=== PATIENT | male | born 1995 | race African-American/Black ===

== ENCOUNTER 2017-11-21 17:26 | Emergency (ER) | payer SELFPAY ==
[2017-11-21 17:27] VITALS: BP 123/69; PULSE 71; RESP 18; TEMP 36.6; O2SAT 98; BMI 22.7
[2017-11-21 19:14] VITALS: PULSE 56; RESP 13; O2SAT 99
--- NOTE | 2017-11-21 19:15 | ED.DCSUM_ITS ---
- ER Visit Summary Date of Service: 11/21/17 Chief Complaint: Chest pain History of Present Illness: The patient is a 22 M with no primary care physician. He reports that he has chest pain that began 3 weeks ago. Is been a continuous pain for the past 3 days. He reports is an aching pain that is 8 out of 10 at worst and 5 out of 10 currently. It is worsened by slumping his shoulders forward. Is relieved by nothing. He does report that he has been mildly short of breath with it. No nausea, vomiting, or diaphoresis. No personal or family history of DVT. No recent travel. No ankle swelling or calf pain. Physical Examination: Vitals: Stable. Afebrile. General: Well-nourished and well-developed. Head: Normocephalic atraumatic. Neck: Supple, no lymphadenopathy. No JVD. Nontender. Cardiovascular: Regular rate and rhythm. No murmurs. Respiratory: No respiratory distress. Clear to auscultation bilaterally. Abdominal: Soft, nontender, nondistended, normal bowel sounds. No guarding, rebound, or peritoneal signs. Back: Nontender. Extremities: Nontender, no edema. Skin: Normal color, no rash. Neurologic: Alert and oriented ?3. Cranial nerves II through XII are intact. Normal strength and sensation. Psych: Normal affect. Test Results: EKG is sinus at 61 with benign early re-pole and LVH. There is no old EKG for comparison. CBC is marked for eosinophils of 6. Chem-7 is more for creatinine 1.32. There is no old creatinine for comparison. Chest x-ray is normal. Emergency Department Course and Treatment: Patient was treated the dose of Toradol IV and is resting comfortably. Treatment Plan: Patient will be discharged naproxen. Instructed for Dr. Wong in 3-5 days if not improving. Return to the emergency department for any worsening symptoms. Disposition: To home in improved and stable condition. Impression: 1. Atypical chest pain. 2. RICHI score of 0. 3. Renal insufficiency. This note was generated with [employer] software. It may contain incorrect words, spelling, and punctuation that were not noted in review of the chart prior to signing ED Disposition - Plan for ED Patient: Disposition: Home or Assisted Living Chief Complaint: Chest Pain Instructions: ED Chest Pain Atypical Unkn Cause Prescriptions: Naproxen [Naprosyn] 500 mg PO BID #14 tablet Referrals: Ivon Wong DO [STAFF PHYSICIAN] - 1 Week if not improving
--- NOTE | 2017-11-21 19:17 | ED.RN ---
NO OLD EKGS IN MUSE
[2017-11-21] MEDS: Ketorolac 30 MG/ML Syringe IV (19:21)
[2017-11-21 19:39] LABS: Absolute Lymphocyte Count 2.43 X10^3/ul (0.83-4.51); Absolute Neutrophil Count 3.8 X10^3/uL (2.0-7.7); Basophil# 0.03 X10^3/uL; Basophil% 0.4 % (0-1); Eosinophil# 0.43 X10^3/uL; Hematocrit 46.5 % (40-54); Hemoglobin 15.1 g/dl (13.0-16.5); Lymphocyte # 2.43 X10^3/ul (4.0); Lymphocyte % 33.7 % (19-41); Mean Corp Hgb Conc 32.5 g/gl (32-36); Mean Corpuscular Hgb 28.9 pg (27.0-32.0); Mean Corpuscular Volume 88.9 fL (80-94); Mean Platelet Vol. 10.1 fl (6.2-12.0); Monocyte# 0.52 X10^3/uL; Monocyte% 7.2 % (0-10); Neutrophil % 52.7 % (47-70); Platelet Count 189 K/mm3 (150-450); RBC Distribution Width CV 13.4 % (11.6-14.6); RBC Distribution Width SD 43.4 fl (35.1-43.9); Red Blood Count 5.23 M/mm3 (4.6-6.2); White Blood Count 7.2 K/mm3 (4.4-11.0)
[2017-11-21 19:40] LABS: POSITIVE COUNT NO; POSITIVE DIFFERENTIAL NO; POSITIVE MORPHOLOGY NO
[2017-11-21 19:43] LABS: Anion Gap 9 (5-15); BUN 13 mg/dL (7-18); BUN/Creat Ratio 9.8 RATIO (10-20); Calcium,Total 8.5 mg/dL (8.5-10.1); Chloride 106 mmol/L (98-107); Creatinine, Serum 1.32 mg/dL (0.70-1.30); EST Glomerular Filtration Rate 73 mL/min (>60); Est Glom Filt Rate - Afr Amer 89 mL/min (>60); Estimated Creatinine Clearance 90.91 ml/min; Glucose 80 mg/dL (74-106); Potassium 3.6 mmol/L (3.5-5.1); Sodium Level 141 mmol/L (136-145)
[2017-11-21 20:34] VITALS: PULSE 67; RESP 17; O2SAT 99
== END 2017-11-21 20:39 | disposition home or self-care (01) ==
LOC: ED 19:34
PROVIDERS: Emergency Provider Emergency Medicine
DX: R07.89 Other chest pain (principal); N28.9 Disorder of kidney and ureter, unspecified; Z72.0 Tobacco use
CPT/HCPCS: 71045; 80048; 85025; 93005; 96374; 99284; A4216

== ENCOUNTER 2019-07-12 13:17 | Emergency (ER) | payer SELFPAY ==
[2019-07-12 13:18] VITALS: BP 156/87; PULSE 96; RESP 20; TEMP 36.2; O2SAT 96; BMI 22.4
--- NOTE | 2019-07-12 13:51 | ED.VIS.PSYCH ---
History of Present Illness Chief Complaint: Suicidal Detail of Chief Complaint: depressed, suicidal thoughts Informant: Patient Onset: Weeks Context: Gradual Onset Conflict: Family, Work, Financial Timing: Continuous Current Severity: Moderate Maximum Severity: Moderate Worsened by: Situational factors Associated Symptoms: Depressed, Change in sleeping, Decreased Interest, Suicidal Thoughts. Negative for: Change in Eating, Hopelessness, Paranoia, Visual Hallucinations, Auditory Hallucinations Specific plan (suicidal thought): overdose and/or use his handgun Narrative: Patient having suicidal thoughts as a result of being depressed about multiple life stressors including being denied access to be involved with his 5-month-old daughter. States he was finding himself in love with the mother of the young girl, however no longer wants to be with her, but she is refusing to allow him to see his daughter. He states this has pushed him over the edge, that everyone is telling him he is crazy and needs to be on medications, counseling, presumably for his depression which he admits he is depressed. He has a handgun, and admits that he was posting on social media that he would overdose on Xanax and fentanyl and if that did not work, he would shoot himself with his handgun. He states that he has owned a handgun for years and has never used it and hopes that he never will have to. He has never seen a counselor before. He does not have any symptoms of psychosis, just depression but he tells me that his depression would be mostly cured and suicidality would be a nonissue if he had access to his daughter so that he could be involved with her life, regardless of the mother. He states that young girl is what is keeping him from following through with his threats. Prior similar symptoms: Yes Recent Illness/Hospitalization: No Past Medical History - Allergies and Home Meds Allergies/Adverse Reactions: Allergies No Known Allergies Allergy (Verified 07/12/19 14:22) Primary Care Physician: Care Physician,No Primary [Primary Care Provider] - Past Medical History: None Smoking Status: Current every day smoker Drugs: None Review of Systems General: Denies: Chills, Fever, Sweats Eyes: Denies: Visual changes - bilaterally, Diplopia ENT: Denies: Bilateral ear pain, Rhinorrhea, Sore throat Cardiovascular: Denies: Chest pain, Palpitations Respiratory: Denies: Dyspnea, Cough, Dyspnea on exertion Gastrointestinal: Denies: Abdominal pain, Nausea, Vomiting, Diarrhea, Melena, Hematochezia Genitourinary: Denies: Dysuria, Hematuria, Frequency Musculoskeletal: Denies: Back pain, Extremity Pain Skin: Denies: Rash, Wounds Neurological: Denies: Headache, Weakness, Numbness Psych: Reports: Depression, Suicidal thoughts. Denies: Suicidal ideations Physical Exam Vital Signs/Narrative: Vital Signs Temp Pulse Resp BP Pulse Ox 07/12/19 13:18 97.1 F L 96 20 H 156/87 H 96 General: Well nourished, Well developed Head: Normocephalic, Atraumatic Eyes: Perrl, EOMI ENT: Moist mucous membranes, No rhinorrhea Neck: Supple, Nontender Cardiovascular: Regular rate, Regular rhythm, No murmurs Respiratory: No distress, CTA bilaterally, Chest nontender Extremities: Nontender, No Edema Skin: Normal color, No rash, No Trauma Neurological: Alert, Oriented x3, Cranial nerves II-XII grossly intact, Normal Strength, Normal Sensation, Normal Gait Psych: Normal Speech Pattern, Logical sequential goal directed thoughts, No suicidal or homicidal ideation, Normal Stable Appropriate Affect, Good Insight, Normal Appearance, Suicidal thoughts. Negative for: Hallucinations, Delusions, Paranoid Ideation Diagnostic/Tx/Re-eval This patient has been having thoughts of self-harm, and even gestured. However he regrets that, really just wants to be involved with his 5-month-old daughter, despite his ex-girlfriend disallowing him to see her. He plans on dealing with this in court at some point, however he does understand that he has other stressors going on contributing to his depression, and agrees that seeing the counselor would be in his and everyone else best interest under the current circumstances. He contracts for safety initially. However then, we got notification from the local house detective who contacted his colleague with the police department here at the emergency department, that the patient while present in our emergency department, was using his telephone to text the ex-girlfriend basically that he was extremely upset with her, that her behavior and actions were going to make me want to commit suicide more now and he even threatened specifics, with regards to overdosing on specific medications, using his firearm to shoot himself, etc. However on further investigation, he has no access to his firearm which is at his grandmother's house, he is not staying there and is staying with some friends/roommates right now, his roommates agreed to accept him back and will help to watch him, there is no access to any drugs or medications or firearms in the house at which they are all staying, and when he goes to and from work, he is always with someone who is giving him a ride that works with him, so he will not be out of his roommates sight alone. Social work discussed with crisis, work pattern chain maker supervisor, and his friend/roommates and everyone is on board with this patient going home and following up with counseling, crisis to call him tomorrow. The patient wants to go home and again is very cooperative and forthcoming about everything, saying basically this is more of a social situation where if he had access to his daughter this really would not be an issue, except for the fact that he keeps issuing threats to his ex, and I am in agreement with crisis that this is more attention seeking than actual suicidal ideation which the patient denies. ED Disposition - Plan for ED Patient: Disposition: Home or Assisted Living Diagnosis: Depression, Suicidal thoughts Instructions: ED Depression, CONTRACT, No Harm Referrals: Counseling,Center [GROUP OF PHYSICIANS] - As soon as possible (they will call you tomorrow)
--- NOTE | 2019-07-12 14:15 | CM.ED ---
Social Work Consult: Suicidal Informant: Dr. Sears Chief Complaint: I have been depressed. Patient cheri slipped to ED by Thang ALVAREZ due to patient ex-girlfriend, Jeanie calling the police about a concerning txt message patient sent Jeanie. Patient stated plan to shoot self or take pills to end patient life per Jeanie's report to police. Marital/Social History: Single. In dating relationship with Jeanie for 1 year and 8 months and recently broke up. Patient had an 8 month old daughter, Devante Argueta that patient has not seen for 3-4 months. Living Situation: Lives with friends. Support/Resources: Friends and family. History: None Education/Employment History: Works full-time at [employer] from 6:45a-2:45p. Reports no concerns with comprehension or understanding. Patient currently in [employer] school. Mental Health Treatment/History: Denies any mental health history. Stating to currently be depressed. Patient denies any active counseling or medication to manage mental health. Patient denies any history of inpatient psychiatric placement. Triggers/Stressors: Negative thoughts. Not being able to see Devante. Coping Skills: Being with friends, listening to music. Abuse Issues: Did not assess Substance Abuse Hx: Denies any current substance abuse. Patient stating to have history of substance abuse. Risk to Self/Others: Patient denies any active suicidal thoughts with plan. Patient admitting to having suicidal thoughts lately and to have taken pills three days ago with intention of hurting self, but regrets this decision and states I want to live. Patient denies any homicidal thoughts/plans. Patient stating to have had a gun to head at the age of 19 in an attempt to end life and that the ammo did not ground right and this is what saved patient life. Patient denies current access to firearms or medications. Patient stating to be with friends all the time. Patient stating that friends are a protective factor. Patient stating to have three goals in life: 1. Graduate, 2. Be the best dad, 3. Work on improving self. Mental Status Exam: A&Ox3 Appearance/General Behavior: Clean. Directable. Calm. Mood/Affect: Grandiose. Slightly elevated. Communication Pattern: Responds to questions. Thought Process: Appropriate. Judgement: Fair Assessment: Met with patient in room. Introduced self as well as group social worker role. Patient agreeable to speaking with this group social worker. Patient stating I just want to go home. Patient stating to want to live and does not want to kill self. Patient speaking majority of assessment about dynamics between patient ex-girlfriend, Jeanie and 8 month old daughter, Devante. Patient stating to want to live for daughter and to only want to see daughter. Patient stating to have no family. Patient defining family as Devante and Jeanie and stating to want to be with them. This group social worker and patient having discussion about things that patient is able to control and things that patient is not able to control. Patient forward thinking. Active support and listening provided. Patient stating to live with friends that keep me safe. Patient stating they know when I am depressed. Patient stating that a step-father of one of patient friends also lives in home. Patient stating the ages of friends as 19 and 20. When this group social worker went to leave patient room to collaborate with Thang De Oliveira updating this group social worker that Jeanie called into the police again with further concerns of patient harming self through txt messages that patient is sending Jeanie at this time. Thang ALVAREZ working on obtaining txt messages for this group social worker at this time. Will continue to follow. Emmanuelle MCGILL, CECIL
[2019-07-12 15:23] VITALS: RESP 18
--- NOTE | 2019-07-12 15:36 | ED.RN ---
CYNTHIA PLACED IN THE ROOM AFTER RECEIVING TEXT MESSAGES
--- NOTE | 2019-07-12 15:55 | CM.ED ---
Addendum entered by Jess Orozco 07/12/19 19:00: Crisis to call patient at 1500 on 07/13/2019, patient provided with reminder. Original Note: Social Work Thang ALVAREZ obtaining txt message history between Jeanie and patient on this day. Message time stamped as 2:35pm on this day. Patient stating to Jeanie You'll never learn told you police won't stop shit, THE ONLY HELP WAS & STILL IS BEING WITH MY FAMILY! You just made me wanna do this so much more you don't even know!. Showing txt messages to Dr. Sears. Dr. Sears wondering about motivation behind txt messages and questioning attention seeking behavior as patient is denying suicidal thoughts or plans. Dr. Sears also requesting for crisis to be consulted. Telephone call to Oseas, Kennedi. Collaborating on case and patient current risk/protective factors. Kennedi stating that patient does not appear to currently meed criteria for [facility] as this would be where patient would be placed if needed due to not having insurance. This social work instructor reading over txt messages and Kennedi also under the impression that patient is attempting to seek attention from ex-girlfriend. Met with patient in room. This social work instructor addressing txt messages with patient and why medical team is concerned. Patient stating I just want to go home. I am not going to kill myself. Patient mother calling to speak with this social work instructor. Patient is open to this social work instructor speaking with patient mother, Roly ([phone]). Phone conversation with Shivareginaldosalbador. Roly stating that patient uses to be on medications at the age of 19 and they helped. Roly stating to believe that patient txt messages are attention seeking to try and obtain time with patient daughter. Roly stating to believe that patient is not suicidal. Patient is agreeable to this social work instructor speaking with patient friend/roommate, Gus. Met with Gus outside ED. Gus stating that patient has been depresses since patient has not been able to see daughter. Gus stating to check in with patient often and that he wants to live. Gus stating that there are no medications or firearms in the home. Gus counseled on lethal means. Collaborating further with Dr. Sears, plan is for safety plan to home with crisis follow-up appointment tomorrow. Met with patient again in room. Patient demonstrating forward thinking when speaking about going to work tomorrow and needed to get out of here. Patient calm and speaking with this social work instructor. Patient open to safety plan and crisis to follow up with patient via phone call tomorrow. This social work instructor broached topic of counseling for patient. Patient is not interested in counseling services. This social work instructor educating patient further on the benefits of counseling and how this could help patient work through current life stressors, patient voicing understanding but providing no commitment or plan to follow up with counseling. Patient educated that if crisis is unable to get in contact with patient tomorrow that a wellness check will be completed, patient stating oh, glad you told me, I might not have answered. This social work instructor expressing importance of following up with mental health services for patient safety. Patient stating plan and intent to stay with friends as I don't like to be alone. Patient stating my friends keep me safe. This social work instructor counseled patient on lethal means as well as provided patient with crisis hotline and local counseling resources. Safety plan completed and copy provided to patient and placed on patient chart. Risk Factors: History of suicide attempt, depressed mood, questionable txt with unclear motive. 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 Through collaborating with Dr. Sears, patient mother, patient friend, Gus, crisis and this social work instructor all agreeable that patient is safe to discharge to home with crisis follow up tomorrow. PLAN: Discharge to home with safety plan and crisis to follow up tomorrow. Emmanuelle MCGILL, CECIL
--- NOTE | 2019-07-12 16:39 | ED.RN ---
CASE MANAGEMENT SAW PATIENT AND INITIATED SAFETY PLAN. PT VERBALIZES UNDERSTANDING. PT, GRAIN FARMER AND MD ALL IN AGREEMENT WITH PT GOING HOME.
== END 2019-07-12 16:40 | disposition home or self-care (01) ==
PROVIDERS: Emergency Provider Emergency Medicine
DX: F32.9 Major depressive disorder, single episode, unspecified (principal); R45.851 Suicidal ideations; F17.200 Nicotine dependence, unspecified, uncomplicated
CPT/HCPCS: 99282

== ENCOUNTER 2019-12-23 19:49 | Emergency (ER) | payer SELFPAY ==
[2019-12-23 19:50] VITALS: BP 129/84; PULSE 115; RESP 17; TEMP 37.4; O2SAT 98; BMI 21.5
[2019-12-23 20:03] VITALS: BP 129/84; PULSE 115; RESP 17; O2SAT 98
[2019-12-23] MEDS: Ziprasidone IM 20 MG/ML VIAL IM (20:20)
--- NOTE | 2019-12-23 20:35 | ED.DCSUM_ITS ---
- ER Visit Summary Date of Service: 12/23/19 Chief Complaint: Suicidal ideation History of Present Illness: The patient is a 24 M with no primary care physician or psychiatrist. Please were called the house as the patient was in an argument with family. He reported them multiple times that he was suicidal and asked them to kill him. Upon arrival to the emergency department patient does admit to suicidal ideation. He reports I am worthless, I cannot go on, I will kill myself. He reports that we cannot keep him from killing himself. However, he denies a specific plan at this time. Review of systems: General: No fever, chills, cold sweats. Cardiovascular: No chest pain, palpitations. Respiratory: No cough, shortness of breath, dyspnea on exertion. Gastrointestinal: No abdominal pain, nausea, vomiting, diarrhea, melena, or hematochezia. Genitourinary: No dysuria, frequency, hematuria. Skin: No rash. Neuro: No headache, numbness, weakness. Physical Examination: Vitals: Stable. Afebrile. General: Well-nourished and well-developed. Head: Normocephalic atraumatic. Neck: Supple, no lymphadenopathy. No JVD. Nontender. Cardiovascular: Tachycardic regular rhythm. No murmurs. Respiratory: No respiratory distress. Clear to auscultation bilaterally. Abdominal: Soft, nontender, nondistended, normal bowel sounds. No guarding, rebound, or peritoneal signs. Back: Nontender. Extremities: Nontender, no edema. Skin: Normal color, no rash. Neurologic: Alert and oriented ?3. Cranial nerves II through XII are intact. Normal strength and sensation. Mental status exam: Patient appears their stated age. Good posture and grooming. Good eye contact. Normal rate, volume, and latency of speech. No homicidal ideation. No auditory or visual hallucinations. Flow of thought is logical. Insight and judgment is fair. Test Results: CBC is normal. Chem-7 shows a chloride of 111 calcium of 8.4. Talk screen shows marijuana. Alcohol level is 27. Emergency Department Course and Treatment: Patient refused to get in bed or get undressed. Police were still here. Patient was placed in restraints and given Geodon. Approximately 15 minutes later the restraints were removed. I discussed the patient with his mother who is very concerned that he is going to kill himself. Patient reported during his stay here that he if he is discharged he is going to kill himself. He is medically cleared. Treatment Plan: Patient will be discussed with the counseling center and will require placement. I feel that he is at significant risk for suicide. Disposition: Pending Impression: 1. Suicidal ideation. This note was generated with [employer] dictation software. It may contain incorrect words, spelling, and punctuation that were not noted in review of the chart prior to signing ED Disposition - Plan for ED Patient: Referrals: Care Physician,No Primary [Primary Care Provider] -
[2019-12-23 21:04] LABS: Amphetamine Urine VISTA NEGATIVE (<1000 ng/mL); Barbiturate Urine VISTA NEGATIVE (< 200 ng/mL); Benzodiazepine Urine VISTA NEGATIVE (< 200 ng/mL); Cocaine Urine VISTA NEGATIVE (< 300 ng/mL); Ecstacy Urine VISTA NEGATIVE (< 500 ng/mL); Methadone Urine VISTA NEGATIVE (< 300 ng/mL); PCP Urine VISTA NEGATIVE (< 25 ng/mL); THC Urine VISTA POSITIVE (< 50 ng/mL); Vista UDS pH Range 6
[2019-12-23 21:13] LABS: Anion Gap 7 (5-15); BUN 15 mg/dL (7-18); BUN/Creat Ratio 15.4 RATIO (10-20); Calcium,Total 8.4 mg/dL (8.5-10.1); Chloride 111 mmol/L (98-107); Creatinine, Serum 0.97 mg/dL (0.70-1.30); EST Glomerular Filtration Rate 102 mL/min (>60); Est Glom Filt Rate - Afr Amer 124 mL/min (>60); Estimated Creatinine Clearance 114.96 ml/min; Glucose 90 mg/dL (74-106); Potassium 3.5 mmol/L (3.5-5.1); Sodium Level 142 mmol/L (136-145)
[2019-12-23 21:15] LABS: Absolute Lymphocyte Count 1.44 X10^3/uL (0.83-4.51); Absolute Neutrophil Count 4.4 X10^3/uL (2.0-7.7); Basophil# 0.05 X10^3/uL; Basophil% 0.7 % (0-1); Eosinophil# 0.32 X10^3/uL; Eosinophils% 4.7 % (0-5); Hematocrit 44.7 % (40-54); Hemoglobin 14.9 g/dL (13.0-16.5); Lymphocyte # 1.44 X10^3/ul (4.0); Lymphocyte % 21.3 % (19-41); Mean Corp Hgb Conc 33.3 g/dL (32-36); Mean Corpuscular Hgb 29.3 pg (27.0-32.0); Mean Platelet Vol. 9.5 fl (6.2-12.0); Monocyte# 0.56 X10^3/uL; Monocyte% 8.3 % (0-10); NRBC Flagged by Analyzer 0 % (0-5); Neutrophil # 4.37 X10^3/uL (2.7-7.7); Neutrophil % 64.7 % (47-70); Platelet Count 207 K/mm3 (150-450); RBC Distribution Width CV 13.3 % (11.6-14.6); RBC Distribution Width SD 43.2 fl (35.1-43.9); Red Blood Count 5.08 M/mm3 (4.6-6.2); White Blood Count 6.8 K/mm3 (4.4-11.0)
--- NOTE | 2019-12-23 22:34 | NURSING ---
ANA MARIA FROM CRISIS CALLED AND SAID [facility] WILL NOT CONSIDER PATIENT UNTIL HE IS ABLE TO COMPLETE A MENTAL EVALUATION. WILL NEED TO WAIT UNTIL PATIENT WAKES UP AND IS ABLE TO TALK TO CRISIS.
[2019-12-23 23:00] VITALS: BP 119/78; PULSE 74; RESP 16; O2SAT 99
[2019-12-24] VITALS: RESP 18
--- NOTE | 2019-12-24 00:51 | ED.RN ---
Kaylene from Crisis called; call transferred into room. Pt speaking with Crisis with siter at BS.
[2019-12-24 01:00] VITALS: RESP 16
--- NOTE | 2019-12-24 01:36 | ED.DCSUM_ITS ---
- ER Visit Summary Date of Service: 12/24/19 Disposition: Discharge with outpatient follow-up Impression: The patient was seen and evaluated by crisis counseling. He has been 5 hours since he had received Geodon. He is awake and alert. He states at this point, he was in an argument with his mother and states that he took it too far. He has no thoughts of self-harm. I did interview him myself and spent some time at the bedside discussing this with him. He states that he just got very agitated and felt aggressive. He has no thoughts of harming himself. He states that his daughter is turning 1 next month and he feels like he needs to be there for her. He has forward thinking thought process. He has no access to lethal means. He is compliant and agreeable with the plan. At this point, I do feel that it is safe for him to be discharged with follow-up. The decision was made with the patient and in conjunction with counseling services. This note was generated with [employer] dictation software. It may contain incorrect words, spelling, and punctuation that were not noted in review of the chart prior to signing ED Disposition - Plan for ED Patient: Instructions: ED Depression Referrals: Counseling,Center [GROUP OF PHYSICIANS] -
[2019-12-24 01:54] VITALS: BP 123/82; PULSE 68; RESP 16
== END 2019-12-24 01:55 | disposition home or self-care (01) ==
PROVIDERS: Emergency Provider Emergency Medicine
DX: R45.851 Suicidal ideations (principal); F17.200 Nicotine dependence, unspecified, uncomplicated
CPT/HCPCS: 80048; 80307; 80320; 85025; 96372; 99285; G0480; J3486

== ENCOUNTER 2022-08-06 11:13 | Emergency (ER) | payer SELFPAY ==
--- NOTE | 2022-08-06 11:16 | ED.RN ---
pt got phone call while in triage, states he needs to go he will come back later
== END 2022-08-06 11:20 | disposition left against medical advice (07) ==
LOC: ED 11:23
DX: Z53.21 Procedure and treatment not carried out due to patient leaving prior to being seen by health care provider (principal)

== ENCOUNTER 2022-08-06 14:01 | Emergency (ER) | payer MEDICAID, SELFPAY ==
[2022-08-06 14:02] VITALS: BP 149/100; PULSE 83; RESP 16; TEMP 36.3; O2SAT 98; BMI 24.4
--- NOTE | 2022-08-06 14:12 | EX.ED.UPPERE ---
HPI History of Present Illness HPI Narrative: Punched a brick wall complaining of right hand discomfort. Chief Complaint: Upper Extremity Injury Informant: patient Occured/Mechanism Mechanism/Context: Yes injury and Yes blunt trauma Onset/Context/Timing Onset: Yesterday Context: Sudden Onset Timing: Continuous Quality of Pain: Dull and Aching Current Severity: Mild Maximum Severity: Mild Narrative Narrative: 27-year-old male no significant past medical history. 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 Complaining of discomfort primarily to the right long finger MCP joint. No prior history of surgery to the hand. No other complaints. Prior similar symptoms: No Recent Illness/Hospitalization: No PFSH PFSH Medical History no medical history no medical history Home Medications NK 07/12/19 [History Last Taken Unknown] Allergy/AdvReac Type Severity Reaction Status Date / Time No Known Allergies Allergy Verified 08/06/22 14:04 Surgical History no surgical history no surgical history Social History Smoking Status: Current some day smoker tobacco type: cigarettes ROS ROS ED ROS Narrative Denies recent illness. Review of Systems ROS Unobtainable: Denies due to encephalopathy Constitutional Constitutional ED: Denies chills or fever(s) Eyes Eyes: Denies blurry vision ENT ENT ED: Denies ear pain Cardiovascular Cardiovascular: Denies chest pain Respiratory/Chest Respiratory/Chest: Denies cough or dyspnea Gastrointestinal Gastrointestinal: Denies abdominal pain Genitourinary Genitourinary ED: Denies dysuria or hematuria Musculoskeletal Musculoskeletal: Denies back pain Integumentary Denies abscess Neurologic Neurologic: Denies headache(s) Psychiatric Psychiatric: Denies anxiety Endocrine Endocrinology: Denies cold intolerance Hematologic/Lymphatic Hematologic/Lymphatic: Denies easy bleeding or easy bruising Allergic/Immunologic Allergic/Immunologic ED: Denies mouth swelling or tongue swelling EXAM Physical Exam Narrative Exam Narrative: 27-year-old male no acute distress. Vital signs stable afebrile. HEENT exam unremarkable. Lungs clear. Heart regular rhythm. Chest wall nontender. Abdomen soft nontender. Moving all 4 extremities. Neurovascular intact. Right hand he has full flexion extension. Of the digits and hand. Full flexion extension of his wrist. Forearm is nontender. His right long finger MCP is mildly swollen and tender there is no gross deformity. Hand is neurovascular intact. Skin is intact. Const Vital Signs: 08/06/22 14:02 Temperature 97.4 F L Temperature Source Temporal Pulse Rate 83 Respiratory Rate 16 Blood Pressure 149/100 H Blood Pressure Mean 116 Pulse Ox 98 Oxygen Delivery Method Room Air Positive well nourished and well developed; Negative for obese, cachectic, contractures or unkempt General Appearance ED: well developed and NAD; Negative for unkempt, cachectic, contractures, cyanotic or diaphoretic Nutritional Appearance: Negative for cachectic or obese HEENT Reports moist mucous membranes normocephalic and atraumatic; Negative for trauma or tenderness Eyes PERRL and EOMs intact bilaterally General Eye ED: Negative for other Neck full ROM and supple General: Negative for tenderness Lymph Lymphatic: Negative for other Chest Wall inspection of chest normal and palpation of chest normal Chest: Negative for other Resp normal respiratory effort and clear to auscultation bilaterally Effort and Inspection: Negative for pain with movement Auscultation: Negative for rales, rhonchi or wheezes Cardio regular rate, regular rhythm, S1 normal heart sound, S2 normal heart sound and no murmurs Rate: Negative for bradycardia or tachycardic Rhythm: Negative for abnormal rhythm GI non-tender, non-distended and no masses Inspection: Negative for abdominal distention Auscultation: normoactive bowel sounds Palpation: soft; Negative for tender or guarding Bladder / Kidney Exam: No other Back/Spine no CVA tenderness Cervical Spine: Negative for cervical spine tenderness Thoracic Spine / Upper Back: Negative for thoracic spinal tenderness Lumbar Spine / Lower Back: Negative for lumbar spinal tenderness Extremity normal to inspection and full ROM Extremity Narrative: Right right hand POP to the right long finger MCP. Mild swelling. Normal range of motion. General Extremety ED: Negative for edema General Extremity: Negative for edema Neuro oriented x3, CN's II-XII intact bilaterally, moves all extremities, no focal motor deficits and no sensory deficits noted Sensorium / Orientation: alert, oriented to person, oriented to place and oriented to time; Negative for orientation impaired, lethargic, stuporous or other Motor Exam: strength 5/5 throughout Psych mental status grossly normal Appearance: Negative for unkempt Attitude: No agitated Mood & Affect: Negative for depressed, anxious or tearful Skin General Skin Exam: Negative for petechiae Lesions: no lesions Rashes: no rashes Trauma: no lacerations or abrasions MDM MDM MDM Narrative Medical decision making narrative: 27-year-old male with shadowboxing and punched a wall. Complaining of pain in his right long finger MCP. X-ray being obtained. Contusion versus fracture. Radiography Diagnostic Testing: Right hand x-ray, 3 views, interpreted by myself shows no acute abnormality. No fracture or dislocation. I went over the films with the patient. Discharge Plan Triage Chief Complaint: Upper Extremity Injury ED Provider: Jr Sweeney Dx/Rx/DC Orders Clinical Impression: Contusion of hand, right Instructions: ED Hand Contusion Prescriptions: No Action NK Primary Care Provider: Care Physician,No Primary Referrals: Anibal Rhodes MD [Med Staff - [employer]] - As Needed Care Physician,No Primary [Primary Care Provider] - Activity Restrictions/Additional Instructions: Ice and elevate your right hand to decrease pain and swelling. Motrin for pain and swelling. This should progressively improve. If not have it reevaluated. Your x-rays were normal today. No broken bones. Absolutely stop vaping it is terrible for your heart and lungs. You are healthy do not let that negatively affect your health. Disposition Disposition: Home, Self Care
--- NOTE | 2022-08-06 14:15 | RAD_ITS ---
STUDY: X-RAY - RIGHT HAND REASON FOR EXAM: Male, 27 years old. Pain following injury. TECHNIQUE: 3 view(s) of the hand. COMPARISON: None. FINDINGS: Normal radiocarpal articulation. Normal distal radioulnar joint. Normal visualized carpal bones. Normal carpal articulations Normal carpometacarpal articulation of the thumb. Normal second through fifth carpometacarpal joints. Normal metacarpi. Normal metacarpophalangeal joint of the thumb. Normal interphalangeal joint of the thumb. Normal proximal and distal phalanges of the thumb. Normal metacarpophalangeal joints of the second through fifth fingers. Normal proximal and distal interphalangeal joints of the second through fifth fingers. Normal phalanges of the second through fifth fingers. The soft tissue structures are unremarkable. RAD/Hand Min 3 Views IMPRESSION: Normal x-ray examination of the hand. Electronically Signed: John Gardner MD at 14:28 EDT ,
== END 2022-08-06 14:40 | disposition home or self-care (01) ==
LOC: ED 14:37
PROVIDERS: Emergency Provider Emergency Medicine; Visit Provider Emergency Medicine
DX: S60.221A Contusion of right hand, initial encounter (principal); F17.210 Nicotine dependence, cigarettes, uncomplicated
CPT/HCPCS: 73130; 99282